=== PATIENT | female | born 1975 ===

== ENCOUNTER → 2020-07-04 | Outpatient (CLI) | payer OTHER | END | disposition home or self-care (01) | LOC: PRENATAL 11:55 | PROVIDERS: ATTEND Obstetrics & Gynecology Maternal & Fetal Medicine | DX: O00.91 Unspecified ectopic pregnancy with intrauterine pregnancy (principal); O36.8 Maternal care for other specified fetal problems; O30.101 Triplet pregnancy, unspecified number of placenta and unspecified number of amniotic sacs, first trimester; Z36.89 Encounter for other specified antenatal screening; Z3A.09 9 weeks gestation of pregnancy ==

== ENCOUNTER → 2020-07-07 | Outpatient (CLI) | payer OTHER | END | disposition home or self-care (01) | LOC: PRENATAL 08:14 | PROVIDERS: ATTEND Obstetrics & Gynecology Maternal & Fetal Medicine | DX: O00.91 Unspecified ectopic pregnancy with intrauterine pregnancy (principal); O09.811 Supervision of pregnancy resulting from assisted reproductive technology, first trimester; O09.511 Supervision of elderly primigravida, first trimester; O30.91 Multiple gestation, unspecified, first trimester; Z36.89 Encounter for other specified antenatal screening; Z3A.10 10 weeks gestation of pregnancy ==

== ENCOUNTER → 2020-07-15 | Outpatient (CLI) | payer OTHER | END | disposition home or self-care (01) | LOC: PRENATAL 13:00 | PROVIDERS: ATTEND Obstetrics & Gynecology Maternal & Fetal Medicine | DX: O00.91 Unspecified ectopic pregnancy with intrauterine pregnancy (principal); O36.80X2 Pregnancy with inconclusive fetal viability, fetus 2; O09.811 Supervision of pregnancy resulting from assisted reproductive technology, first trimester; O30.91 Multiple gestation, unspecified, first trimester; Z36.89 Encounter for other specified antenatal screening; Z3A.11 11 weeks gestation of pregnancy ==

== ENCOUNTER → 2020-09-16 | Outpatient (CLI) | payer OTHER | END | disposition home or self-care (01) | LOC: PRENATAL 15:00 | PROVIDERS: ATTEND Obstetrics & Gynecology Maternal & Fetal Medicine | DX: O35.0XX2 Maternal care for (suspected) central nervous system malformation in fetus, fetus 2 (principal); O35.3XX2 Maternal care for (suspected) damage to fetus from viral disease in mother, fetus 2; O98.512 Other viral diseases complicating pregnancy, second trimester; O30.92 Multiple gestation, unspecified, second trimester; O35.1XX2 Maternal care for (suspected) chromosomal abnormality in fetus, fetus 2; O09.512 Supervision of elderly primigravida, second trimester; Z36.89 Encounter for other specified antenatal screening; Z3A.20 20 weeks gestation of pregnancy ==

== ENCOUNTER 2020-11-12 15:42 | Outpatient (CLI) | payer OTHER | END 2020-11-12 17:04 | disposition home or self-care (01) | LOC: PRENATAL 15:42 | PROVIDERS: ATTEND Obstetrics & Gynecology Maternal & Fetal Medicine | DX: O26.843 Uterine size-date discrepancy, third trimester (principal); O30.93 Multiple gestation, unspecified, third trimester; O09.813 Supervision of pregnancy resulting from assisted reproductive technology, third trimester; O09.513 Supervision of elderly primigravida, third trimester; Z36.89 Encounter for other specified antenatal screening; Z3A.28 28 weeks gestation of pregnancy ==

== ENCOUNTER 2020-11-26 10:34 | Outpatient (CLI) | payer OTHER | END 2020-11-26 11:34 | disposition home or self-care (01) | LOC: NST 10:34 | PROVIDERS: ATTEND Obstetrics & Gynecology Maternal & Fetal Medicine | DX: O30.093 Twin pregnancy, unable to determine number of placenta and number of amniotic sacs, third trimester (principal); Z3A.30 30 weeks gestation of pregnancy ==

== ENCOUNTER 2020-12-03 10:34 | Outpatient (CLI) | payer OTHER | END 2020-12-03 11:36 | disposition home or self-care (01) | LOC: NST 10:34 | PROVIDERS: ATTEND Obstetrics & Gynecology Maternal & Fetal Medicine | DX: Z34.83 Encounter for supervision of other normal pregnancy, third trimester (principal) ==

== ENCOUNTER 2020-12-10 09:55 | Outpatient (CLI) | payer OTHER | END 2020-12-10 11:09 | disposition home or self-care (01) | LOC: NST 09:55 | PROVIDERS: ATTEND Obstetrics & Gynecology Maternal & Fetal Medicine | DX: Z34.83 Encounter for supervision of other normal pregnancy, third trimester (principal) ==

== ENCOUNTER 2020-12-17 09:25 | Outpatient (CLI) | payer OTHER ==
[2020-12-18] MEDS ORDERED: PRENATAL TABLE1 EAC1 PO (16:43)
[2020-12-18] MEDS ORDERED: CHILDREN'S ASPI81 MG PO (16:43)
[2020-12-18] MEDS ORDERED: LOVENOX40 MG/0.4 SUBCUTANEO (16:44)
== END 2020-12-17 11:50 | disposition home or self-care (01) ==
LOC: NST 09:25
PROVIDERS: ATTEND Obstetrics & Gynecology Maternal & Fetal Medicine
DX: Z34.83 Encounter for supervision of other normal pregnancy, third trimester (principal)

== ENCOUNTER 2020-12-18 12:27 | Inpatient (IN) | payer OTHER ==
[~2020-12-18] VITALS: Ht 160 cm; Wt 1.8 kg
[2020-12-18] MEDS ORDERED: PRENATAL TABLE1 EAC1 PO (16:43)
[2020-12-18] MEDS ORDERED: CHILDREN'S ASPI81 MG PO (16:43)
[2020-12-18] MEDS ORDERED: LOVENOX40 MG/0.4 SUBCUTANEO (16:44)
[2020-12-19] MEDS ORDERED: TRANDATE300 MG PO (11:17)
== END 2020-12-22 17:02 | disposition home or self-care (01) | DRG 788 ==
LOC: LDR 12:27 → OB/GYN 12-19 20:25
PROVIDERS: ADMIT Obstetrics & Gynecology Maternal & Fetal Medicine; ATTEND Obstetrics & Gynecology Maternal & Fetal Medicine
PROC: 10D00Z1 Extraction of Products of Conception, Low, Open Approach (ICD-10-PCS; principal; 2020-12-18)
PROC: 4A1HXFZ Monitoring of Products of Conception, Cardiac Rhythm, External Approach (ICD-10-PCS; 2020-12-18)
DX: O11.4 Pre-existing hypertension with pre-eclampsia, complicating childbirth (principal); O10.92 Unspecified pre-existing hypertension complicating childbirth; O30.043 Twin pregnancy, dichorionic/diamniotic, third trimester; O60.14X2 Preterm labor third trimester with preterm delivery third trimester, fetus 2; O60.14X1 Preterm labor third trimester with preterm delivery third trimester, fetus 1; Z37.2 Twins, both liveborn; Z3A.33 33 weeks gestation of pregnancy